=== PATIENT | male | born 1985 | race Caucasian/White ===

== ENCOUNTER 2020-11-02 09:32 | Outpatient (REF) | payer OTHER, SELFPAY ==
[2020-11-02 11:56] LABS: Alanine Aminotransferase 39 U/L (0-40); Albumin Level 4.7 g/dL (3.5-5.0); Alkaline Phosphatase 65 U/L (39-117); Anion Gap 13 (12-20); Aspartate Amino Transferase 32 U/L (5-37); Bilirubin Total 0.8 mg/dL (0.0-1.0); Blood Urea Nitrogen 14 mg/dL (9-16); Calcium 9.2 mg/dL (8.4-10.2); Carbon Dioxide 28 mmol/L (22-29); Chloride 103 mmol/L (96-108); Cholesterol 187 mg/dL; Estimated Glomerular Filt Rate > 60; Glucose Fasting 88 mg/dL (60-99); HDL Cholesterol 52 mg/dL; LDL Cholesterol Calculated 122 mg/dl; Potassium 3.8 mmol/L (3.3-5.1); Sodium 140 mmol/L (135-145); Total Protein 7.9 g/dL (6.5-8.0); Triglycerides 68 mg/dL
[2020-11-02 12:00] LABS: TSH reflex Free T4 0.73 uIU/mL (0.32-4.0)
== END 2020-11-02 09:33 | disposition home or self-care (01) ==
LOC: HO.HMGCLDS 09:32
PROVIDERS: PCP Nurse Practitioner Family; Visit Provider Nurse Practitioner Family
DX: I10 Essential (primary) hypertension (principal); E78.49 Other hyperlipidemia
CPT/HCPCS: 36415; 80053; 80061; 84443

== ENCOUNTER 2021-04-20 10:08 | Outpatient (REF) | payer OTHER, SELFPAY ==
[2021-04-20 11:19] LABS: MANUAL DIFF FLAG NO
[2021-04-20 11:25] LABS: Basophils Percent Auto 0.3 % (0-2); Eosinophils Absolute Auto 0.1 X10*3/uL (0.0-0.4); Eosinophils Percent Auto 1.5 % (0-4); Hematocrit 46.7 % (42-52); Hemoglobin 16.1 g/dl (14.0-18.0); Imm Gran Abs Auto 0.01 X10*3/uL (0.00-0.03); Imm Gran Pct Auto 0.1 % (0.0-0.4); Lymphocytes Absolute Auto 2.5 X10*3/uL (1.2-4.9); Lymphocytes Percent Auto 36.5 % (20-40); Mean Corpuscular HGB Conc 34.5 g/dl (31.0-36.0); Mean Corpuscular Hemoglobin 30.1 pg (27.0-33.0); Mean Corpuscular Volume 87.3 fL (80-98); Monocytes Absolute Auto 0.5 X10*3/uL (0.1-1.2); Monocytes Percent Auto 6.5 % (2-11); Neutrophils Absolute Auto 3.8 X10*3/uL (2.0-8.3); Neutrophils Percent Auto 55.1 % (45-73); Platelet Count 166 X10*3/uL (160-400); Red Blood Count 5.35 X10*6/uL (4.60-5.80); White Blood Count 6.9 X10*3/uL (4.8-10.8)
[2021-04-20 11:27] LABS: Glucose Urine UA NEG (NEG); Leukocyte Esterase Urine NEG (NEG); Nitrite Urine NEG (NEG); Urine Blood NEG (NEG); Urine Ketones NEG (NEG); Urine Protein NEG (NEG-TRACE)
[2021-04-20 11:29] LABS: Appearance Urine CLEAR; Color Urine YELLOW
[2021-04-20 11:43] LABS: Alanine Aminotransferase 36 U/L (0-40); Albumin Level 4.4 g/dL (3.5-5.0); Alkaline Phosphatase 61 U/L (39-117); Anion Gap 12 (12-20); Aspartate Amino Transferase 25 U/L (5-37); Blood Urea Nitrogen 14 mg/dL (9-16); C Reactive Protein 0.11 mg/dL (< or = 0.50); Calcium 9.7 mg/dL (8.4-10.2); Carbon Dioxide 26 mmol/L (22-29); Chloride 104 mmol/L (96-108); Estimated Glomerular Filt Rate > 60; Glucose Fasting 92 mg/dL (60-99); Potassium 3.9 mmol/L (3.3-5.1); Sodium 138 mmol/L (135-145); Total Protein 7.5 g/dL (6.5-8.0)
[2021-04-20 12:04] LABS: TSH reflex Free T4 0.71 uIU/mL (0.32-4.0)
[2021-04-20 12:19] LABS: Erythrocyte Sedimentation Rate 2 MM/HR (0-15)
[2021-04-21 22:16] LABS: Lyme Abs Screen <0.90 index
== END 2021-04-20 10:09 | disposition home or self-care (01) ==
LOC: HO.HMGCLDS 10:08
PROVIDERS: PCP Nurse Practitioner Family; Visit Provider Nurse Practitioner Family
DX: G43.009 Migraine without aura, not intractable, without status migrainosus (principal)
CPT/HCPCS: 36415; 80053; 81003; 84443; 85025; 85652; 86140; 86617; 86618

== ENCOUNTER 2021-06-27 19:15 | Outpatient (REF) | payer OTHER, SELFPAY ==
--- NOTE | ~2021-06-27 | MR_ITS ---
EXAMINATION: MR BRAIN WITHOUT CONTRAST CLINICAL INFORMATION: Migraines. COMPARISON: Brain MRI dated 09/08/2012. TECHNIQUE: Multiplanar, multisequence imaging of the brain was performed without contrast. FINDINGS: No diffusion abnormalities are identified to suggest an acute or subacute infarct. The ventricles are normal in size. No mass effect or midline shift is seen. No brain parenchymal signal abnormality is noted. No extra-axial fluid collections are seen. The brainstem and cerebellum are normal. The gradient refocused acquisition is normal. The craniovertebral junction, marrow signal, and midline structures are normal. The major intracranial flow voids at the level of the te[place] of [place] are preserved. The dural venous sinus flow voids are maintained. The mastoid air cells and paranasal sinuses are well aerated. MR/MR head/brain wo con IMPRESSION: Normal MRI of the brain. No acute process.
== END 2021-06-27 19:16 | disposition home or self-care (01) ==
LOC: HO.MRI 19:15
PROVIDERS: Visit Provider Nurse Practitioner Family
DX: G43.009 Migraine without aura, not intractable, without status migrainosus (principal)
CPT/HCPCS: 70551

== ENCOUNTER 2022-06-07 16:17 | Outpatient (REF) | payer OTHER, SELFPAY ==
--- NOTE | ~2022-06-07 | XR_ITS ---
EXAMINATION: XR LUMBOSACRAL SPINE CLINICAL INFORMATION: Low back pain COMPARISON: Previous x-ray and lumbar spine MRI July 2014 TECHNIQUE: Three views of the lumbosacral spine. FINDINGS: There may be a transitional vertebral body segment or 6 lumbar-type vertebral bodies. Bone alignment is normal. No fracture or dislocation. Degenerative disc disease at L4-L5. Lower lumbar spine facet arthritis. XR/XR lumbar spine 2-3V IMPRESSION: Degenerative changes of the lower lumbar spine.
== END 2022-06-07 16:18 | disposition home or self-care (01) ==
LOC: HO.HMGCX 16:17
PROVIDERS: PCP Nurse Practitioner Family; Visit Provider Nurse Practitioner Family
DX: M54.50 Low back pain, unspecified (principal)
CPT/HCPCS: 72100

== ENCOUNTER 2022-09-09 | Outpatient (REF) | payer OTHER, SELFPAY ==
[2022-09-10 12:34] LABS: FIT Int Ctl YES; FIT1 NEGATIVE (NEGATIVE); FIT2 NEGATIVE (NEGATIVE)
== END 2022-09-09 00:01 | disposition home or self-care (01) ==
LOC: HO.LNP
PROVIDERS: Visit Provider Nurse Practitioner Family
DX: K30 Functional dyspepsia (principal); R19.5 Other fecal abnormalities
CPT/HCPCS: 82274

== ENCOUNTER 2022-09-10 07:52 | Outpatient (REF) | payer OTHER, SELFPAY ==
[2022-09-10 11:23] LABS: Appearance Urine Clear; Color Urine Yellow; Glucose Urine UA Negative (Negative); Leukocyte Esterase Urine Negative (Negative); Nitrite Urine Negative (Negative); PH 6.5 (5.0-9.0); Specific Gravity - Urine <= 1.005 (1.005-1.025); Urine Blood Negative (Negative); Urine Ketones Negative (Negative); Urine Protein Negative (Neg-Trace)
[2022-09-10 11:40] LABS: MANUAL DIFF FLAG NO
[2022-09-10 11:49] LABS: Basophils Percent Auto 0.5 % (0-2); Eosinophils Absolute Auto 0.3 X10*3/uL (0.0-0.4); Eosinophils Percent Auto 3.4 % (0-4); Hematocrit 48.3 % (42.0-52.0); Hemoglobin 16.3 g/dl (14.0-18.0); Imm Gran Abs Auto 0.01 X10*3/uL (0.00-0.03); Imm Gran Pct Auto 0.1 % (0.0-0.4); Lymphocytes Absolute Auto 2.6 X10*3/uL (1.2-4.9); Lymphocytes Percent Auto 35.6 % (20-40); Mean Corpuscular HGB Conc 33.7 g/dl (31.0-36.0); Mean Corpuscular Hemoglobin 29.6 pg (27.0-33.0); Mean Corpuscular Volume 87.8 fL (80.0-98.0); Mean Platelet Volume 11.1 fL (9.4-12.4); Monocytes Absolute Auto 0.6 X10*3/uL (0.1-1.2); Monocytes Percent Auto 8.7 % (2-11); Neutrophils Absolute Auto 3.8 x10*3/uL (2.0-8.3); Neutrophils Percent Auto 51.7 % (45-73); Platelet Count 181 X10*3/uL (160-400); Red Cell Distribution Width 12.2 % (11.0-16.0); White Blood Count 7.4 X10*3/uL (4.8-10.8)
[2022-09-10 12:40] LABS: Alanine Aminotransferase 51 U/L (0-40); Albumin Level 4.2 g/dL (3.5-5.0); Alkaline Phosphatase 65 U/L (39-117); Anion Gap 11 (12-20); Aspartate Amino Transferase 31 U/L (5-37); Bilirubin Total 0.7 mg/dL (0.0-1.0); Blood Urea Nitrogen 11 mg/dL (9-16); Calcium 9.4 mg/dL (8.4-10.2); Carbon Dioxide 27 mmol/L (22-29); Chloride 105 mmol/L (96-108); Cholesterol 231 mg/dL; Estimated Glomerular Filt Rate > 60; Glucose Fasting 93 mg/dL (60-99); HDL Cholesterol 39 mg/dL; LDL Cholesterol Calculated 165 mg/dl; Sodium 139 mmol/L (135-145); Total Protein 7.3 g/dL (6.5-8.0); Triglycerides 139 mg/dL
[2022-09-10 12:41] LABS: TSH reflex Free T4 0.67 uIU/mL (0.32-4.0)
== END 2022-09-10 07:53 | disposition home or self-care (01) ==
LOC: HO.HMGCLDS 07:52
PROVIDERS: PCP Nurse Practitioner Family; Visit Provider Nurse Practitioner Family
DX: Z00.00 Encounter for general adult medical examination without abnormal findings (principal); K30 Functional dyspepsia; R19.5 Other fecal abnormalities
CPT/HCPCS: 36415; 80053; 80061; 81003; 84443; 85025

== ENCOUNTER 2022-09-17 10:15 | Outpatient (REF) | payer OTHER, SELFPAY ==
--- NOTE | ~2022-09-17 | US_ITS ---
EXAMINATION: US ABDOMEN COMPLETE CLINICAL INFORMATION: Abnormal levels of other serum enzymes. COMPARISON: Renal ultrasound 09/04/2022. TECHNIQUE: Real-time imaging of the abdominal viscera. FINDINGS: PANCREAS: Normal. ABDOMINAL AORTA: The proximal, mid, and distal segments are normal in caliber. INFERIOR VENA CAVA: Visualized portions are normal. LIVER: The liver is normal in size. The liver contour is normal. There is diffuse increased liver parenchymal echogenicity, consistent with infiltrative hepatocellular disease. No focal hepatic lesion. There is no intrahepatic biliary duct dilatation seen. GALLBLADDER: Normal. The gallbladder is physiologically distended without evidence of stones, sludge, polyps, wall thickening or pericholecystic fluid. COMMON BILE DUCT: Normal in caliber measuring 0.5 cm in diameter. RIGHT KIDNEY: Normal. No hydronephrosis. No renal calculi or focal parenchymal lesions. The kidney measures 11.1 cm in maximum dimension. LEFT KIDNEY: Normal. No hydronephrosis. No renal calculi or focal parenchymal lesions. The kidney measures 11.4 cm in maximum dimension. SPLEEN: Normal. The spleen measures 9.3 cm in maximum dimension. FREE FLUID: None. US/US abdomen complete IMPRESSION: Increased hepatic echogenicity which can be seen in the setting of hepatic steatosis or underlying liver disease.
[2022-09-18 05:06] LABS: HBS Num1 > 1000.00 mIU/mL (0-7.99); HBc Num1 0.08 S/CO (0.00-0.79); HBsAGNum1 0.33 S/CO (0.00-0.99); Hepatitis A Antibody IgM 0.11 Index (0-0.79); Hepatitis B Core Antibody Nonreactive (Nonreactive); Hepatitis B Surface Antigen Negative (Negative); ~HepC Num1 0.07 S/CO (0.00-0.79); ~Hepatitis A Antibody IgM Nonreactive (Nonreactive); ~Hepatitis B Surface Antibody REACTIVE (Nonreactive); ~Hepatitis C Antibody Nonreactive (Nonreactive)
== END 2022-09-17 10:16 | disposition home or self-care (01) ==
LOC: HO.HMGCX 10:15
PROVIDERS: PCP Nurse Practitioner Family; Visit Provider Nurse Practitioner Family
DX: R74.8 Abnormal levels of other serum enzymes (principal)
CPT/HCPCS: 36415; 76700; 86704; 86706; 86709; 86803; 87340

== ENCOUNTER 2022-09-19 18:33 | Outpatient (REF) | payer OTHER, SELFPAY ==
--- NOTE | ~2022-09-19 | MR_ITS ---
MR LUMBAR SPINE WITHOUT IV CONTRAST CLINICAL INFORMATION: Low back pain. COMPARISON: Lumbar spine MRI 07/22/2014. TECHNIQUE: MRI of the lumbar spine was obtained using routine sequences without contrast. FINDINGS: There are 5 nonrib-bearing lumbar-type vertebral bodies. Straightening of the lumbar lordosis. The vertebral body heights are maintained. Progressive moderate to severe disc volume loss at L4-L5 with associated disc desiccation. Modic type I Modic type II endplate signal changes at L4-L5. There is no additional bone marrow edema. There are no acute fractures. Conus terminates at the T12 level. Bilateral perinephric stranding. L1-L2: Disc contour is normal. No central canal stenosis and no foraminal stenosis. L2-L3: Posterior disc contour is normal. No central canal stenosis and no foraminal stenosis. L3-L4: Small annular disc bulge and mild bilateral facet arthropathy. No central canal stenosis and no foraminal stenosis. L4-L5: Moderate bilateral facet arthropathy. Significant interval decrease in size of a now small left paracentral disc protrusion, which results in compression of the traversing left L5 nerve root within the left subarticular zone. Background annular disc bulge. A left lateral disc osteophyte protrusion contacts the extraforaminal left L4 nerve root. There is mild narrowing of the central canal and there is mild right-sided foraminal encroachment. L5-S1: Small annular disc bulge. Mild bilateral facet arthropathy. No central canal stenosis and no foraminal stenosis. MR/MR lumbar spine wo con IMPRESSION: At L4-L5, there has been a significant interval decrease in size of a now small left paracentral protrusion, which results in compression of the traversing left L5 nerve root within the left subarticular zone.
== END 2022-09-19 18:34 | disposition home or self-care (01) ==
LOC: HO.MRI 18:33
PROVIDERS: Visit Provider Nurse Practitioner Family
DX: M54.50 Low back pain, unspecified (principal)
CPT/HCPCS: 72148

== ENCOUNTER → 2022-10-24 14:16 | Outpatient (BNVA) | payer OTHER, SELFPAY | PROVIDERS: PCP Nurse Practitioner Family; Visit Provider Physician Assistant | DX: Z13.89 Encounter for screening for other disorder (principal) ==

== ENCOUNTER 2022-11-05 07:58 | Outpatient (REF) | payer OTHER, SELFPAY | END 2022-11-05 07:59 | disposition home or self-care (01) | LOC: HO.HMGCLNP 07:58 | PROVIDERS: PCP Nurse Practitioner Family; Visit Provider Physician Assistant | DX: A04.8 Other specified bacterial intestinal infections (principal) | CPT/HCPCS: 87338 ==

== ENCOUNTER 2024-07-13 08:50 | Outpatient (REF) | payer OTHER, SELFPAY ==
[2024-07-13 13:11] LABS: MANUAL DIFF FLAG NO
[2024-07-13 13:14] LABS: Basophils Percent Auto 0.5 % (0-2); Eosinophils Absolute Auto 0.2 X10*3/uL (0.0-0.4); Eosinophils Percent Auto 2.2 % (0-4); Hematocrit 48.8 % (42.0-52.0); Hemoglobin 16.6 g/dl (14.0-18.0); Imm Gran Abs Auto 0.01 X10*3/uL (0.00-0.03); Imm Gran Pct Auto 0.1 % (0.0-0.4); Lymphocytes Absolute Auto 2.9 X10*3/uL (1.2-4.9); Mean Corpuscular Hemoglobin 29.7 pg (27.0-33.0); Mean Corpuscular Volume 87.5 fL (80.0-98.0); Mean Platelet Volume 11.3 fL (9.4-12.4); Monocytes Absolute Auto 0.5 X10*3/uL (0.1-1.2); Monocytes Percent Auto 7.1 % (2-11); Neutrophils Absolute Auto 3.8 x10*3/uL (2.0-8.3); Neutrophils Percent Auto 51.1 % (45-73); Platelet Count 172 X10*3/uL (160-400); Red Blood Count 5.58 X10*6/uL (4.60-5.80); Red Cell Distribution Width 12.1 % (11.0-16.0); White Blood Count 7.4 X10*3/uL (4.8-10.8)
[2024-07-13 13:17] LABS: Appearance Urine Clear; Color Urine Yellow; Glucose Urine UA Negative (Negative); Leukocyte Esterase Urine Negative (Negative); Nitrite Urine Negative (Negative); Urine Blood Negative (Negative); Urine Ketones Negative (Negative); Urine Protein Negative (Neg-Trace)
[2024-07-13 13:43] LABS: Alanine Aminotransferase 47 U/L (0-40); Albumin Level 4.3 g/dL (3.5-5.0); Alkaline Phosphatase 64 U/L (39-117); Anion Gap 13 (12-20); Aspartate Amino Transferase 36 U/L (5-37); Bilirubin Total 0.6 mg/dL (0.0-1.0); Blood Urea Nitrogen 11 mg/dL (9-16); Calcium 9.5 mg/dL (8.4-10.2); Carbon Dioxide 26 mmol/L (22-29); Chloride 103 mmol/L (96-108); Cholesterol 296 mg/dL (<200); Estimated Glomerular Filt Rate > 60; Glucose Fasting 99 mg/dL (60-99); HDL Cholesterol 47 mg/dL (>40); LDL Cholesterol Calculated 224 mg/dL (<100); Potassium 3.7 mmol/L (3.3-5.1); Sodium 138 mmol/L (135-145); Total Protein 7.7 g/dL (6.5-8.0); Triglycerides 128 mg/dL (<150)
[2024-07-13 13:50] LABS: TSH reflex Free T4 1.04 uIU/mL (0.32-4.0)
== END 2024-07-13 08:51 | disposition home or self-care (01) ==
LOC: HO.HMGCLDS 08:50
PROVIDERS: PCP Nurse Practitioner Family; Visit Provider Nurse Practitioner Family
DX: Z00.00 Encounter for general adult medical examination without abnormal findings (principal); H35.52 Pigmentary retinal dystrophy; F41.9 Anxiety disorder, unspecified; H54.8 Legal blindness, as defined in USA; I10 Essential (primary) hypertension
CPT/HCPCS: 36415; 80053; 80061; 81003; 84443; 85025; 96127

== ENCOUNTER 2024-07-13 08:50 | Outpatient (AMB) | payer OTHER, SELFPAY ==
[2024-07-13 08:53] VITALS: BP 148/90; PULSE 94; O2SAT 98; BMI 30.9
--- NOTE | 2024-07-13 08:53 | A.OFFPC_ITS ---
Vital Signs 07/13/24 08:53 07/13/24 09:20 Height 5 ft 9 in Weight 209 lb 8 oz BMI 30.9 BP 148/90 H 132/84 Blood Pressure Location Rt brachial Rt brachial Position Sitting Sitting Pulse 94 Pulse Source Pulse Oximeter Pulse Oximetry (%) 98 Oxygen Delivery Method Room Air Intake Visit Reasons: PE Intake Note: Pt presents to the office today for a PE. Pt states he is overall feeling well and denies any concerns at this time. Allergies [facility] allergies spring Allergy (Unknown, Uncoded 07/13/24 09:06) runny nose/itchy eye Medication List - Last Reconciled 07/13/24 by Augustus Monroe, [employer]- buspirone 5 mg PO BID 90 days Tobacco use date assessed: 07/13/24 Dental Screening Dental Screen Date: 07/13/24 Did you have a dental visit in the last 12 months?: Yes Did you have a dental problem in the last 6 months where you did not have access to dental care?: No Was dental information given to patient?: Patient has dentist HPI PE HPI Details History of Present Illness The patient is a 39-year-old male presenting for a PE and to address 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 The patient reports experiencing anxiety, attributing it primarily to the challenges of navigating the world as a legally blind individual. He notes that this has been an ongoing issue. The anxiety is presumed to be contributing to elevated blood pressure readings in clinical settings, although his home readings range from 118/72 mmHg to 130/82 mmHg. He expresses concerns about potential white coat syndrome contributing to this discrepancy. 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 No family history of prostate or colon cancer is reported, but there is paternal history of lung cancer related to smoking. 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, which has led to a reduction in stress. - Exercise: Patient indicates he is phys ically active and tries to maintain fitness. - Past Employment: Previous roles in [employer] and at the [employer]. - Family Planning: No current details we re discussed regarding immediate family planning. Review of Systems - General: Reports increased anxiety. - Cardiovascular: Denies recent chest pa in or shortness of breath. - Gastrointestinal: Denies blood in stoo l, constipation, or diarrhea. - Neurological: Denies headaches or dizz iness. - Genitourinary: Denies urinary problems . Physical Exam General: Cooperative, healthy appearing, comfortable, no acute distress and well developed Orientation: Patient oriented x3 Head: Normal to inspection Ears: Hearing grossly normal bilaterally Nose: Normal external nose present Face and sinus: Normal facial exam Eyes: Legal blindness noted, non icteric Neck: Normal visual inspection and Yes full ROM Respiratory: Normal respiratory effort and able to speak in complete sentences. Clear to auscultation bilaterally Cardiovascular: Regular rate and rhythm. Normal S1 and S2 GI: Normal to inspection. Soft to palpation and nontender Skin: No rashes or lesions noted Neuro: Patient oriented x3 Extremities: Normal to inspection Results Plan - Anxiety related to legal blindness: Di scussed the presence of anxiety, likely exacerbated in clinical settings. Recommended continuation of current management efforts, and consideration of behavioral and lifestyle strategies to manage anxiety more effectively. Refused therapist/psychiatrist. - Essential Hypertension: Review home bl ood pressure monitoring trends. Suggested monitoring for white coat syndrome and potential lifestyle modifications such as stress-reduction techniques and continued physical activity. Patient was informed and verbally consented to the use of an ambient scribe for clinic note documentation during this visit. Discussion Notes Patient Instructions - Continue regular monitoring of blood p ressure at home. - Implement stress-reduction techniques as discussed. - Maintain physical activity levels to h elp manage anxiety and hypertension. - Follow up with routine wellness checks to monitor blood pressure and address any new concerns. [facility] Medical History Retinitis pigmentosa Dyslipidemia Familial hyperlipidemia Family History Father CAD (coronary artery disease) CVD (cardiovascular disease) Mother Thyroid disease Social History Housing: House Alcohol intake: current Alcohol intake frequency: holidays/special occasions only Patient Tobacco Use Status: Never used Tobacco e-Cigarette/Vaping Use: Never Used Second Hand Smoke Exposure: No service: No Current occupational status: employed Current occupation: [employer] Current occupational exposures/hazards: No Cognitive needs: No Hearing needs: No Vision needs: No Questionnaire PHQ-9 Over the last 2 weeks, how often have you been bothered by any of the following problems? 1. Little interest or pleasure in doing things: not at all 2. Feeling down, depressed, or hopeless: not at all 3. Trouble falling or staying asleep, or sleeping too much: not at all 4. Feeling tired or having little energy: not at all 5. Poor appetite or overeating: not at all 6. Feeling bad about yourself - or that you are a failure or have let yourself or your family down: not at all 7. Trouble concentrating on things, such as reading the newspaper or watching television: not at all 8. Moving or speaking so slowly that other people could have noticed. Or the opposite - being so fidgety or restless that you have been moving around a lot more than usual: not at all 9. Thoughts that you would be better off or of hurting yourself in some way: not at all Total score: 0 Depression Screening Interpretation: Negative Depression Screening Done: Yes 23135 - PHQ-9 Billing: Yes Source: Developed by Drs. Giovanny Davis, Tiffanie Etienne, Kwame Adam and colleagues, with an educational sobeida from [employer]. Thrive Questionnaire Date Thrive assessed: 07/13/24 I am a: Patient What is your living situation today?: I have a steady place to live Within the past 12 months, did the food you bought not last and you didn't have the money to get more?: Never true Within the past 12 months, did you worry whether your food would run out before you got money to buy more?: Never true Do you have trouble paying for medicines?: No Do you have trouble getting transportation to medical appointments?: No Do you have trouble paying your heating and electricity bill?: No Do you have trouble taking care of your child, family member or friend?: No Do you have trouble with day-to-day activities such as bathing, preparing meals, shopping, managing finances, etc.?: No Are you currently unemployed and looking for a job?: No Are you interested in more education?: No THRIVE Score: 0 AUDIT C Alcohol Use Questionnaire (AUDIT-C) 1. How often do you have a drink containing alcohol?: Monthly or less 2. How many drinks containing alcohol do you have on a typical day when you are drinking?: 1 or 2 3. How often do you have six or more drinks on one occasion?: Never Total Score: 1 ZAFAR-7 AMB Questionnaire ZAFAR-7 Date ZAFAR - 7 assessed: 07/13/24 Feeling nervous, anxious, or on edge: 0 = Not at all Not being able to stop or control worryin = Not at all Worrying too much about different things: 0 = Not at all Trouble relaxin = Not at all Being so restless that it is hard to sit still: 0 = Not at all Becoming easily annoyed or irritable: 0 = Not at all Feeling afraid as if something awful might happen: 0 = Not at all Total ZAFAR-7 score (0-4 normal; 5-9 mild; 10-14 moderate; 15-21 severe): 0 Source: Developed by Drs. Giovanny Davis, Tiffanie Etienne, Kwame Adam and colleagues, with an educational sobeida from [employer]. ZAFAR-7 Assessment Billing ZAFAR-7 Assessment Tool: ZAFAR-7 Assessment 17139 Physical exam (Primary Care) Vital Signs: Last Vital Signs Pulse 94 07/13/24 08:53 BP 148/90 H 07/13/24 08:53 Pulse Ox 98 07/13/24 08:53 Oxygen Delivery Method Room Air 07/13/24 08:53 BMI result Body Mass Index 30.9 Tobacco/Smoking Status: Tobacco use Status Tobacco use date assessed 07/13/24 07/13/24 09:00 Patient Tobacco Use Status Never used Tobacco 07/13/24 09:00 e-Cigarette/Vaping Use Never Used 07/13/24 09:00 PHQ-9: PHQ-9 Score PHQ-9: Total score 0 07/13/24 09:05 Depression Screening Interpretation: Negative Thrive Assessment: Date of Thrive Assessment Date Thrive assessed 07/13/24 07/13/24 09:00 Coding Level of Care Code Est Pt Prev Care 40-64y(80918) Diagnoses Retinitis pigmentosa H35.52 Physical exam Z00.00 Additional Codes ZAFAR-7 Assessment Billing - ZAFAR-7 Assessment Tool: ZAFAR-7 Assessment 19162 ([id number]) PHQ-9 - 48227 - PHQ-9 Billing: Yes ([id number]) Assessment & Plan Assessment & Plan (1) Retinitis pigmentosa: Comment: congenital blindness Code(s): H35.52 - Pigmentary retinal dystrophy Category: Medical (2) Physical exam: Code(s): Z00.00 - Encounter for general adult medical examination without abnormal findings Category: Medical Plan . Orders: Orders Comprehensive [place]. Panel Fast Today H35.52 - Pigmentary retinal dystrophy, Z00.00 - Encounter for general adult medical examination without abnormal findings Complete Blood Count Auto Diff Today H35.52 - Pigmentary retinal dystrophy, Z00.00 - Encounter for general adult medical examination without abnormal findings TSH reflex Free T4 Today H35.52 - Pigmentary retinal dystrophy, Z00.00 - Encounter for general adult medical examination without abnormal findings UA CC w/rflx Micro + Cult Today H35.52 - Pigmentary retinal dystrophy, Z00.00 - Encounter for general adult medical examination without abnormal findings Lipid Panel Today H35.52 - Pigmentary retinal dystrophy, Z00.00 - Encounter for general adult medical examination without abnormal findings
[2024-07-13 09:20] VITALS: BP 132/84
== END 2024-07-13 09:21 | disposition home or self-care (01) ==
PROVIDERS: PCP Nurse Practitioner Family; Visit Provider Nurse Practitioner Family
DX: H35.52 Pigmentary retinal dystrophy (principal); Z00.00 Encounter for general adult medical examination without abnormal findings